=== PATIENT | female | born 1960 | race Caucasian/White ===

== ENCOUNTER 2019-09-16 16:36 | Emergency (ER) | payer BC ==
[~2019-09-16] VITALS: Ht 170.2 cm; Wt 78.2 kg
[2019-09-16 16:47] VITALS: BP 137/60
[2019-09-16] MEDS ORDERED: ACETAMINOPHEN 325 MG TABLET PO ONE (17:00)
--- NOTE | 2019-09-16 17:03 | PHYS DOC ---
Past History Past Medical History: Hypertension Past Surgical History: Appendectomy, Alcohol Use: Occasionally Adult General Chief Complaint Chief Complaint: FLU SYMPTOM HPI HPI Patient is a 59 year old female presents with the chief complaint of cough, nausea, vomiting, and headache. Onset of symptoms last night. Patients cough without sputum production. Patients headache is located right frontal. Patient and family concerned about headache because patient feel 2 weeks ago. No associated chest pain. Review of Systems Review of Systems Constitutional: Denies fever or chills [] Eyes: Denies change in visual acuity, redness, or eye pain [] HENT: Denies nasal congestion or sore throat [] Respiratory: Denies shortness of breath [positive cough] Cardiovascular: No additional information not addressed in HPI [no chest pain] GI: Denies abdominal pain, bloody stools or diarrhea [positive nausea and vomiting] : Denies dysuria or hematuria [] Musculoskeletal: Denies back pain or joint pain [myalgias] Integument: Denies rash or skin lesions [] Neurologic: Denies focal weakness or sensory changes [positive headache] Endocrine: Denies polyuria or polydipsia [] All other systems were reviewed and found to be within normal limits, except as documented in this note. Allergies Allergies Allergies Coded Allergies Type Severity Reaction Last Updated Verified No Known Drug Allergies 09/16/19 No Physical Exam Physical Exam Constitutional: Well developed, well nourished, no acute distress, non-toxic appearance. [] HENT: Normocephalic, atraumatic, bilateral external ears normal, oropharynx moist, no oral exudates, nose normal. [] Eyes: PERRLA, EOMI, conjunctiva normal, no discharge. [] Neck: Normal range of motion, no tenderness, supple, no stridor. [] Cardiovascular:Heart rate regular rhythm, no murmur [] Lungs & Thorax: Bilateral breath sounds clear to auscultation [] Abdomen: Bowel sounds normal, soft, no tenderness, no masses, no pulsatile masses. [] Skin: Warm, dry, no erythema, no rash. [] Back: No tenderness, no CVA tenderness. [] Extremities: No tenderness, no cyanosis, no clubbing, ROM intact, no edema. [] Neurologic: Alert and oriented X 3, normal motor function, normal sensory function, no focal deficits noted. [] Psychologic: Affect normal, judgement normal, mood normal. [] Current Patient Data Vital Signs Vital Signs Date Time Temp Pulse Resp B/P (MAP) Pulse Ox O2 Delivery O2 Flow Rate FiO2 09/16/19 16:47 98.2 103 20 137/60 (85) 92 Room Air EKG EKG [] Radiology/Procedures Radiology/Procedures [] Course & Med Decision Making Course & Med Decision Making Pertinent Labs and Imaging studies reviewed. (See chart for details) []Influenza A positive. Rx tamiflu and zofran Advised to take tylenol and motrin Dragon Disclaimer Dragon Disclaimer This electronic medical record was generated, in whole or in part, using a voice recognition dictation system. Departure Departure: Impression: Primary Impression: Viral syndrome Additional Impressions: Headache Influenza A Disposition: HOME, SELF-CARE Condition: STABLE Referrals: MARILOU LYNN MD (PCP) Patient Instructions: Influenza A (H1N1) Scripts Acetaminophen With Codeine (TYLENOL WITH CODEINE #3 TABLET) 1 Each Tablet 1 TAB PO PRN Q6HRS PRN for pain MDD 4 Tablet(s) for 7 Days, #14 TAB 0 Refills Prov: RONAN GRANT I DO 09/16/19 Ondansetron Hcl (ZOFRAN) 4 Mg Tablet 1 TAB PO PRN Q6-8HRS, #5 TAB Prov: RONAN GRANT I DO 09/16/19 Oseltamivir Phosphate (TAMIFLU) 75 Mg Capsule 1 CAP PO BID, #10 CAP Prov: RONAN GRANT I DO 09/16/19 Problem Qualifiers RONAN GRANT DO Sep 16, 2019 17:03
[2019-09-16 17:14] LABS: INFLUENZA A PATIENT POSITIVE (NEGATIVE); INFLUENZA B PATIENT NEGATIVE (NEGATIVE)
[2019-09-16] MEDS ORDERED: ACET-704 PO (17:26)
[2019-09-16] MEDS ORDERED: OSEL75CA PO (17:26)
[2019-09-16] MEDS ORDERED: ONDA4TAB7 PO (17:26)
== END 2019-09-16 17:31 | disposition home or self-care (01) ==
LOC: ER 16:36
DX: B34.9 Viral infection, unspecified (principal); R51 Headache; J10.1 Influenza due to other identified influenza virus with other respiratory manifestations; I10 Essential (primary) hypertension; Z90.49 Acquired absence of other specified parts of digestive tract
CPT/HCPCS: 87804; 99283

== ENCOUNTER → 2020-01-15 | Outpatient (CLI) | payer BC ==
[~2020-01-15] MED LIST: ACET-704 PO; ONDA4TAB7 PO; OSEL75CA PO
--- NOTE | 2020-01-15 16:26 | RAD ---
RIBS LEFT AND PA CHEST History: Reason: RIB AND CHEST PAIN / Spl. Instructions: / History: Technique: PA view the chest and 3 additional views of the left ribs. Comparison: None. Findings: No consolidation or pleural effusion. Normal heart size. No pneumothorax. No displaced rib fractures. Impression: 1. No acute cardiopulmonary process. 2. No displaced rib fractures. Electronically signed by: Ramsey Ivey DO (01/15/2020 4:23 PM) [facility]
== END ==
LOC: DXRAD 16:02
PROVIDERS: ATTEND Specialist
DX: R07.82 Intercostal pain (principal)
CPT/HCPCS: 71101

== ENCOUNTER → 2020-09-03 | Outpatient (CLI) | payer BC ==
--- NOTE | 2020-09-03 16:45 | RAD ---
INDICATION: Reason: RT LEG PAIN / Spl. Instructions: / History: COMPARISON: None. TECHNIQUE: Grayscale, color and doppler ultrasound images were obtained of the right lower extremity venous vasculature. RIGHT: No thrombus identified in the common femoral vein, femoral vein, popliteal vein or visualized calf ve ins. IMPRESSION: * No thrombus identified in deep venous system of right lower extremity. Electronically signed by: Jermain Hardy MD (09/03/2020 4:43 PM) [id number]
--- NOTE | 2020-09-03 17:00 | RAD ---
Exam: Right hip 2 views with pelvis INDICATION: Hip pain TECHNIQUE: Frontal view of the pelvis with frontal and frog-leg lateral views of the right hip Comparisons: None FINDINGS: Bone mineralization is normal. No acute or healed fractures. Soft tissues are unremarkable. There is moderate osteoarthritic change at the right hip joint and mild on the left. IMPRESSION: Degenerative changes described above. No acute fractures seen. Electronically signed by: Katia Dow MD (09/03/2020 4:58 PM) [facility]
== END ==
LOC: US 16:08
PROVIDERS: ATTEND Specialist
DX: M16.11 Unilateral primary osteoarthritis, right hip (principal)
CPT/HCPCS: 73502; 93971